=== PATIENT | female | born 1955 | race Caucasian/White ===

== ENCOUNTER 2016-11-09 17:43 | Emergency (ER) | payer MEDICAID ==
[~2016-11-09] VITALS: Ht 157.5 cm; Wt 73.0 kg
[~2016-11-09 17:43] MED LIST: ASPI325T2 PO; CEPH500C2 PO; IBUP-1509 PO; PROT40 PO; TRIUMEQ; [UNRECOGNIZED DRUG - CODE] PO
[2016-11-09 19:36] LABS: BASOPHILS % 0.6 % (0.0-2.0); HEMATOCRIT. 22.5 % (36.0-48.0); HEMOGLOBIN. 7.8 g/dL (12.0-16.0); LYMPHOCYTES % 37.8 % (20.0-50.0); MEAN CORPUSCULAR HEMOGLOBIN 38.6 pg (28.0-32.0); MEAN CORPUSCULAR HGB CONC 34.9 g/dL (31.0-37.0); MEAN CORPUSCULAR VOLUME 110.6 fL (81.0-99.0); MEAN PLATELET VOLUME 7.3 fl (7.4-10.4); MONOCYTES % 6.1 % (2.0-8.0); NEUTROPHILS % 53.5 % (40.0-76.0); PLATELET 192 x1000/uL (130-400); RED BLOOD CELL COUNT 2.03 mill/uL (4.2-5.4); RED CELL DISTRIBUTION WIDTH 16.9 % (11.6-14.6); WHITE BLOOD COUNT 3.7 x1000/uL (4.5-11.0)
[2016-11-09 19:38] LABS: ADD RBC MORPHOLOGY YES; DIFFERENTIAL COMMENT 1
[2016-11-09 19:40] LABS: CHLORIDE 107 mEq/L (98-107); INDEX HEMOLYSI 1 (1-3); INDEX ICTERIC 1 (1-4); INDEX LIPEMIC 3 (1-3)
[2016-11-09 19:42] LABS: INR 1.8; PROTHROMBIN TIME 18.4 sec
[2016-11-09 19:43] LABS: ALBUMIN 3.8 g/dL (3.4-5.0); ANION GAP 12; CALCIUM 8.8 mg/dL (8.5-10.1); CARBON DIOXIDE 27 mEq/L (21-32)
[2016-11-09 19:46] LABS: ALANINE AMINOTRANSFERASE 22 IU/L (13-61)
[2016-11-09 19:49] LABS: UREA NITROGEN BLOOD 15 mg/dL (7-21); eGFR > 60 mL/min (>60)
[2016-11-09 19:51] LABS: PLATELET ESTIMATE NORMAL
[2016-11-09 21:25] VITALS: BP 137/69
== END 2016-11-09 21:40 | disposition home or self-care (01) ==
LOC: ER 18:00
DX: D64.9 Anemia, unspecified (principal); R79.0 Abnormal level of blood mineral; I10 Essential (primary) hypertension; Z86.73 Personal history of transient ischemic attack (TIA), and cerebral infarction without residual deficits; Z87.440 Personal history of urinary (tract) infections
CPT/HCPCS: 36415; 80053; 85025; 85610; 86850; 86870; 86900; 86901; 99284; Z7610